=== PATIENT | female | born 2000 | race Caucasian/White ===

== ENCOUNTER 2024-01-23 16:25 | Outpatient (CLI) | payer MEDICAID, SELFPAY ==
[2024-01-23 16:42] VITALS: BP 133/82; PULSE 94; PULSE 95; TEMP 36.6; O2SAT 96
[2024-01-23 17:02] LABS: Appearance Urine Clear (Clear); Bilirubin Urine Negative (Negative); Blood Urine Negative (Negative); Color Urine Yellow (Yellow); Glucose Urine Negative (Negative); Ketones Urine Negative (Negative); Leukocyte Esterase Urine 1+ (Negative); Nitrite Urine Negative (Negative); Protein Urine Negative (Negative); Urobilinogen Urine 0.2 (0.2-1.0)
[2024-01-23 17:09] LABS: Bacteria Urine Few; RBC Urine 0-2 (0-2); Squamous Epithelial Cell Urine Few (None-Few)
[2024-01-23 17:26] VITALS: PULSE 87; O2SAT 98
[2024-01-23 17:36] LABS: Clue Cells <20% Clue Cells Seen (None Seen); Trichomonas No Trichomonas Seen (None Seen); Yeast No Yeast Seen (None Seen)
--- NOTE | 2024-01-23 18:10 | PC.OBNST ---
NST Note NST Note Start: 01/23/24 16:31 Freq: ONCE Status: Active Protocol: Document 01/23/24 18:09 RAEANN (Rec: 01/23/24 18:10 RAEANN Desktop) NST Note 1 Para (# of births) 0 EDC 03/18/24 Gestational Age In Weeks & Days 32 Weeks & 1 Days Other Complaints Foamy discharge, pelvic pressure Reactive Yes Appropriate for Gestational Age Yes RN Dontae Nolen RN Date 01/23/24 Reactive Yes Appropriate for Gestational Age Yes JACOB Shah Date 01/23/24 OB NST charge Yes Complete NST Note via Write Note Yes The provider's electronic signature indicates the NST is reactive/appropriate for gestational age. *Note to provider: If an addendum is required, open the patient's chart and click on the note under the Nurse/Allied Health tab.
[2024-01-23 18:27] VITALS: BP 121/74; PULSE 86
== END 2024-01-23 18:30 | disposition home or self-care (01) ==
LOC: OB OUT 16:25 → OB 16:25
PROVIDERS: PCP Family Medicine; Visit Provider Family Medicine
DX: O47.03 False labor before 37 completed weeks of gestation, third trimester (principal); Z3A.32 32 weeks gestation of pregnancy
CPT/HCPCS: 59025; 81001; 81003; 87086; 87210; G0463

== ENCOUNTER 2024-02-23 12:07 | Outpatient (CLI) | payer MEDICAID, SELFPAY ==
[2024-02-23] VITALS (19 sets, daily range): BP systolic 118–135; BP diastolic 68–82; PULSE 81–114; RESP 18; TEMP 37.2; O2SAT 97
[2024-02-23] MEDS: ACETAMINOPHEN 500 MG TABLET 1000 MG PO (12:30)
[2024-02-23] MEDS: LACTATED RINGERS 1000 ML 1,000 ML IV (12:31)
[2024-02-23 12:47] LABS: Hematocrit 34.4 % (33.0-51.0); Mean Corpuscular HGB Conc 32 gm/dL (32-36); Mean Corpuscular Hemoglobin 29 pg (26-34); Mean Corpuscular Volume 91 fL (80-100); Platelet Count* 209 K/uL (140-440); Red Blood Count 3.79 m/uL (4.00-5.20); White Blood Count* 13.42 K/uL (4.50-11.00)
[2024-02-23 12:51] LABS: Slide Review Reflex No
[2024-02-23 13:01] LABS: Appearance Urine Clear (Clear); Bilirubin Urine Negative (Negative); Blood Urine Negative (Negative); Color Urine Yellow (Yellow); Glucose Urine Negative (Negative); Ketones Urine Negative (Negative); Leukocyte Esterase Urine Trace (Negative); Nitrite Urine Negative (Negative); Protein Urine Negative (Negative); Specific Gravity Urine >= 1.030 (1.000-1.030); Urobilinogen Urine 0.2 (0.2-1.0)
[2024-02-23 13:09] LABS: Alanine Aminotransferase* 12 U/L (4-35); Aspartate Amino Transferase* 31 U/L (12-35); Blood Urea Nitrogen* 7 mg/dL (5-24); Creatinine* 0.5 mg/dL (0.5-1.5); Estimated Glomerular Filt Rate 136 ml/min
[2024-02-23 13:09] LABS: RBC Urine 0-2 (0-2); Squamous Epithelial Cell Urine Few (None-Few); Total Protein Urine 11 mg/dL; WBC Urine 0-2 (0-5)
[2024-02-23 13:10] LABS: Bacteria Urine Few; Creatinine Urine 138.5 mg/dL; Protein Creatinine Ratio Urine 0.08 (0-0.19)
--- NOTE | 2024-02-23 16:46 | PC.OBNST ---
NST Note NST Note Start: 02/23/24 12:20 Freq: ONCE Status: Active Protocol: Document 02/23/24 16:43 MMB (Rec: 02/23/24 16:45 MMB [id number]) NST Note 1 Para (# of births) 0 EDC 03/18/24 Gestational Age In Weeks & Days 36 Weeks & 4 Days Patient Presented with Complaint(s) of Headache,Other Other Complaints High Blood pressure reading in clinic. R/o Pre-E. Reactive Yes Appropriate for Gestational Age Yes JACOB Gudino RN Date 02/23/24 Reactive Yes Appropriate for Gestational Age Yes JACOB Shah RN Date 02/23/24 OB NST charge Yes Complete NST Note via Write Note Yes The provider's electronic signature indicates the NST is reactive/appropriate for gestational age. *Note to provider: If an addendum is required, open the patient's chart and click on the note under the Nurse/Allied Health tab.
== END 2024-02-23 15:20 | disposition home or self-care (01) ==
LOC: OB OUT 12:07 → OB 12:08
PROVIDERS: PCP Family Medicine; Visit Provider Family Medicine
DX: O26.893 Other specified pregnancy related conditions, third trimester (principal); R51.9 Headache, unspecified; Z3A.36 36 weeks gestation of pregnancy
CPT/HCPCS: 36415; 59025; 81001; 81003; 82565; 82570; 84156; 84450; 84460; 84520; 85027; 87086; G0463; A9270; J7120

== ENCOUNTER 2024-02-27 14:00 | Outpatient (CLI) | payer MEDICAID, SELFPAY ==
[2024-02-27] VITALS (18 sets, daily range): BP systolic 113–139; BP diastolic 64–88; PULSE 80–119; O2SAT 97–99
[2024-02-27] MEDS: ACETAMINOPHEN 500 MG TABLET 1000 MG PO (15:21)
[2024-02-27 15:47] LABS: Alanine Aminotransferase* 16 U/L (4-35); Aspartate Amino Transferase* 27 U/L (12-35); Blood Urea Nitrogen* 8 mg/dL (5-24); Creatinine* 0.5 mg/dL (0.5-1.5); Estimated Glomerular Filt Rate 136 ml/min
[2024-02-27 16:11] LABS: Total Protein Urine 6 mg/dL
[2024-02-27 16:14] LABS: Hematocrit 36.1 % (33.0-51.0); Hemoglobin* 11.4 gm/dL (12.0-16.0); Mean Corpuscular HGB Conc 32 gm/dL (32-36); Mean Corpuscular Hemoglobin 29 pg (26-34); Mean Corpuscular Volume 91 fL (80-100); Platelet Count* 212 K/uL (140-440); Red Blood Count 3.96 m/uL (4.00-5.20); White Blood Count* 11.84 K/uL (4.50-11.00)
[2024-02-27 16:17] LABS: Slide Review Reflex No
--- NOTE | 2024-02-27 17:50 | PC.OBNST ---
NST Note NST Note Start: 02/27/24 14:14 Freq: ONCE Status: Active Protocol: Document 02/27/24 17:48 FJZ (Rec: 02/27/24 17:50 FJZ [id number]) NST Note 1 Para (# of births) 0 EDC 03/18/24 Gestational Age In Weeks & Days 37 Weeks & 1 Days Patient Presented with Complaint(s) of Other Other Complaints Elevated BP at home. Came in for BP monitoring. Reactive Yes Appropriate for Gestational Age Yes RN Antonia Case RN Date 02/27/24 Reactive Yes Appropriate for Gestational Age Yes RN Antonia Case RN Date 02/27/24 OB NST charge Yes Complete NST Note via Write Note Yes The provider's electronic signature indicates the NST is reactive/appropriate for gestational age. *Note to provider: If an addendum is required, open the patient's chart and click on the note under the Nurse/Allied Health tab.
--- NOTE | 2024-03-08 14:38 | PC.OBNST ---
NST Note NST Note Start: 02/27/24 14:14 Freq: ONCE Status: Discharge Protocol: Document 02/27/24 17:48 FJZ (Rec: 02/27/24 17:50 MORGANZ [id number]) NST Note 1 Para (# of births) 0 EDC 03/18/24 Gestational Age In Weeks & Days 37 Weeks & 1 Days Patient Presented with Complaint(s) of Other Other Complaints Elevated BP at home. Came in for BP monitoring. Reactive Yes Appropriate for Gestational Age Yes RN Antonia Case RN Date 02/27/24 Reactive Yes Appropriate for Gestational Age Yes RN Antnoia Case RN Date 02/27/24 OB NST charge Yes Complete NST Note via Write Note Yes The provider's electronic signature indicates the NST is reactive/appropriate for gestational age. *Note to provider: If an addendum is required, open the patient's chart and click on the note under the Nurse/Allied Health tab.
== END 2024-02-27 17:10 | disposition home or self-care (01) ==
LOC: OB OUT 14:01 → OB 14:01
PROVIDERS: PCP Family Medicine; Visit Provider Family Medicine
DX: O26.893 Other specified pregnancy related conditions, third trimester (principal); R03.0 Elevated blood-pressure reading, without diagnosis of hypertension; Z3A.37 37 weeks gestation of pregnancy
CPT/HCPCS: 36415; 59025; 82565; 82570; 84156; 84450; 84460; 84520; 85027; G0463; A9270

== ENCOUNTER 2024-02-29 15:55 | Inpatient (IN) | payer MEDICAID, SELFPAY ==
[2024-02-29] VITALS (9 sets, daily range): BP systolic 125–128; BP diastolic 69–76; PULSE 78–118; RESP 16; TEMP 36.7–37.2; O2SAT 100; BMI 32.6
[2024-02-29 17:23] LABS: Basophils Percent Auto 0.1 % (0.0-3.0); Eosinophils Percent Auto 0.4 % (0.0-7.0); Hematocrit 34.5 % (33.0-51.0); Immature Granulocytes Pct Auto 0.4 %; Lymphocytes Percent Auto 14.1 % (20-44); Mean Corpuscular HGB Conc 32 gm/dL (32-36); Mean Corpuscular Hemoglobin 29 pg (26-34); Mean Corpuscular Volume 90 fL (80-100); Monocytes Percent Auto 7.5 % (0.0-11.0); Neutrophils Percent Auto 77.5 % (42.0-72.0); Platelet Count* 209 K/uL (140-440); RDW Coefficient of Variation % 12.8 % (11.5-15.5); Red Blood Count 3.82 m/uL (4.00-5.20); White Blood Count* 14.06 K/uL (4.50-11.00)
[2024-02-29 17:25] LABS: Slide Review Reflex No
[2024-02-29] MEDS: miSOPROStoL 25 MCG/0.25 TABLET PO ×4 (17:34→23:44)
[2024-02-29 18:03] LABS: Alanine Aminotransferase* 16 U/L (4-35); Aspartate Amino Transferase* 29 U/L (12-35); Creatinine* 0.5 mg/dL (0.5-1.5); Est. Creatinine Clearance* 139.58; Estimated Glomerular Filt Rate 136 ml/min
[2024-02-29 18:04] LABS: Blood Urea Nitrogen* 12 mg/dL (5-24)
[2024-02-29 20:28] LABS: Total Protein Urine 6 mg/dL
[2024-02-29 20:29] LABS: Protein Creatinine Ratio Urine 0.04 (0-0.19)
[2024-03-01] VITALS (49 sets, daily range): BP systolic 109–139; BP diastolic 57–83; PULSE 80–109; RESP 16; TEMP 36.6–38; O2SAT 100
[2024-03-01] MEDS: MORPHINE 10 MG/ML inj IM (00:29)
[2024-03-01] MEDS: hydrOXYzine pamoate 25 MG CAPSULE 100 MG PO (00:30)
[2024-03-01] MEDS: miSOPROStoL 25 MCG/0.25 TABLET PO ×2 (01:54→04:01)
--- NOTE | 2024-03-01 07:16 | PM.OBHPLI ---
OB - H&P: HPI Labor/Induction History of Present Illness Date Seen: 03/01/24 Chief complaint: Maternity Narrative: Aminata Lew is a 23 year old at 37.4 weeks gestation by 1st trimester US, who presented for IOL secondary to gestational hypertension diagnosed at clinic visit on 02/28. IOL began on 02/28 with cervical ripening overnight with PO cytotec. Patient tolerated this well. Did have some cramping and contractions. Has had some blood noted after cervical checks. Feeling normal FM. has been otherwise uncomplicated. Was on citalopram for first 4 months of , then elected to discontinue. Echogenic intracardiac focus identified on anatomy US - underwent level II US with MPP and had low risk NIPT. History of Present Dating criteria: based on 1st trimester US only care: good care complications: gestational hypertension Labs Blood type: A (+) positive Rubella: immune RPR/VDLR: nonreactive GBS status: negative HBsAG: negative Meds Home Medications and Allergies Home Medications ?Medication ?Instructions ?Recorded ?Confirmed ?Type vitamins no.144-folic 2 tab PO DAILY 01/23/24 02/29/24 History acid 400 mcg chewable tablet () Allergies Allergy/AdvReac Type Severity Reaction Status Date / Time Prednisone Allergy Mild Rash Uncoded 01/23/24 18:15 OB - H&P: Exam Physical Exam: Vital signs: Temp Pulse Resp BP Pulse Ox 98.9 F 83 16 136/83 100 03/01/24 07:10 03/01/24 07:10 03/01/24 07:10 03/01/24 07:10 02/29/24 16:21 Constitutional: Constitutional: no acute distress Routine Respiratory Exam: Respiratory: Present CTA bilaterally Routine Cardiovascular Exam: Cardiovascular: RRR Comments: no murmur Detailed Labor and Delivery Exam: Patient Gravid: Yes Cervix position: anterior Consistency: soft Fetus (Single): Heart Rate Baseline: 125 Monitor Accelerations: Present Chcf Variability: Moderate (6-25) OB - Results Labs Labs: Short CBC 02/29/24 Range/Units 17:12 WBC 14.06 H (4.50-11.00) K/uL Hgb 11.0 L (12.0-16.0) gm/dL Hct 34.5 (33.0-51.0) % Plt Count 209 (140-440) K/uL BMP 02/29/24 17:12 BUN 12 Creatinine 0.5 Liver Function 02/29/24 Range/Units 17:12 AST 29 (12-35) U/L ALT 16 (4-35) U/L OB - Problem Based A/P Additional Plan (1) Gestational hypertension: Status: Acute (2) 37 weeks gestation of : Status: Acute Plan at 37.4 here for IOL 2/2 GHTN. Preeclampsia labs normal. BP have been normal since arrival to center on 02/28. S/p PO cytotec overnight. Cervical dilation is fingertip. Able to place cook catheter at 0700 with 50cc per balloon. Plan to start low dose pitocin at 0800. Anticipate .
[2024-03-01] MEDS: ONDANSETRON 2 MG/ML inj 4 MG IV (07:59)
[2024-03-01] MEDS: LACTATED RINGERS 1000 ML 1,000 ML 125 ML IV ×3 (08:34→18:54)
[2024-03-01] MEDS: OXYTOCIN 30 unit/500 ML in NS 30 UNIT/500 ML BAG IVPB (08:35)
[2024-03-01] MEDS: ROPIVACAINE 0.2% 100 ml 100 ML 12 MG EPIDURAL ×2 (16:58→22:45)
[2024-03-01] MEDS: LIDOCAINE 2% (PF) 5 ML VIAL EPIDURAL (16:59)
[2024-03-01] MEDS: fentaNYL 250 MCG/5 ML inj 100 MCG EPIDURAL (17:05)
--- NOTE | 2024-03-01 17:14 | PM.ANBPRC ---
[facility] Medical History (Updated 03/01/24 @ 08:06 by Dana De Los Santos, ) 37 weeks gestation of ?Z3A.37 - 37 weeks gestation of (ICD-10) Gestational hypertension ?O13.9 - Gestational [-induced] hypertension without significant proteinuria, unspecified trimester (ICD-10) Social History What is your current living situation?: I presently have a place to live Problems where you live: no known problems In the past 12 months, utilities in danger of being shut off: no In past 12 months, lack of transportation kept you from medical appts, meetings, work, or getting things needed for daily living: no In the past 12 mos, have been you worried that your food would run out before you had money to buy more?: never true In the past 12 mos, the food you bought just didn't last and you didn't have money to buy more?: never true Smoking Status: Never smoker How often does anyone, including family, friends and others, physically hurt you: never How often does anyone, including family, friends and others, insult or talk down to you: never How often does anyone, including family, friends and others, threaten you with harm: never How often does anyone, including family, friends and others, scream or curse at you: never Meds Home Medications and Allergies Home Medications ?Medication ?Instructions ?Recorded ?Confirmed ?Type vitamins no.144-folic 2 tab PO DAILY 01/23/24 02/29/24 History acid 400 mcg chewable tablet () Allergies Allergy/AdvReac Type Severity Reaction Status Date / Time Prednisone Allergy Mild Rash Uncoded 01/23/24 18:15 Results Labs Labs: Laboratory Results - last 24 hr 02/29/24 02/29/24 17:02 17:12 WBC 14.06 H RBC 3.82 L Hgb 11.0 L Hct 34.5 MCV 90 MCH 29 MCHC 32 RDW Coeff of Terese 12.8 Plt Count 209 Neut % (Auto) 77.5 H Lymph % (Auto) 14.1 L Marin % (Auto) 7.5 Eos % (Auto) 0.4 Baso % (Auto) 0.1 Neut # (Auto) 10.90 H Lymph # (Auto) 2.00 Marin # (Auto) 1.10 H Eos # (Auto) 0.10 Baso # (Auto) 0.00 Abs Immat Gran (auto) 0.10 Imm/Tot Granulo (auto) 0.4 BUN 12 Creatinine 0.5 Estimated Creat Clear 139.58 Estimated GFR 136 AST 29 ALT 16 Urine Creatinine 138.0 Protein/Creatinin Ratio 0.04 Urine Total Protein 6 Blood Type A Positive Antibody Screen NEGATIVE Vital Signs Vital Signs: Last Vital Signs Temp 99.2 F 03/01/24 16:10 Pulse 93 03/01/24 17:07 Resp 16 03/01/24 07:10 BP 125/68 03/01/24 17:07 Pulse Ox 100 03/01/24 17:08 Weight: 81.012 kg Height: 157.48 cm Anesthesia Procedures Epidural Insertion Patient Location: OB Start Time: 16: Stop Time: 17:30 Start Date: 03/01/24 Stop Date: 03/01/24 Reason for Block: primary anesthetic Patient Position: sitting Performed By: Grant Retana Preanesthetic Checklist: IV checked, risks and benefits discussed, surgical consent, monitors and equipment checked, pre-op evaluation, timeout performed and anesthesia consent Prep: chlorhexidine gluconate Monitoring: blood pressure monitoring, rn cardiac rehab, continuous pulse oximetry and heart rate Approach: midline Vertebral Space: lumbar (1-5) Needle Type: Tuohy needle Injection Technique: continuous catheter Needle gauge: 17 Needle Length (cm): 10 cm Needle Insertion Depth (cm): 6 Catheter Gauge: 19 Catheter Type: multi-orifice Catheter at skin depth (cm): 12 Test Dose Result: negative and lidocaine 1.5% with epinephrine 1 to 200,000 Events: other
[2024-03-01 18:11] LABS: Amnisure Rom* POSITIVE
[2024-03-02] VITALS (15 sets, daily range): BP systolic 107–165; BP diastolic 56–72; PULSE 81–97; RESP 16–19; TEMP 36.8–37.3; O2SAT 95–98
--- NOTE | 2024-03-02 00:35 | W.PM.VAGDEL1 ---
Procedure Procedure Done: Global Procedure Details: Aminata Lew is a 23 yo who underwent IOL 2/2 gestational hypertension at 37.3 weeks gestation. Underwent cervical ripening with cytotec prior to placement of cook catheter and initiation of pitocin. She had a normal first stage of labor. Early in the second stage, she had one temperature of 100.4 F without other s/sx of intraamniotic infection. She pushed for approximately 2 hours and 20 minutes. She delivered a male infant at 37w4d gestation via . There was a body cord x1 that was delivered through. EBL 150 cc. There was a 3rd degree perineal laceration which was repaired by Ob-Patient Resource Coordinator, Dr. Nicolas. Events: Gestational Hypertension Intrapartal Events: Labor Induction Route of delivery: Laceration description: Perineal - 3rd Degree Estimated blood loss (mL): 150 Roy Infant Gender: Male presentation: vertex Placental Delivery Description: Spontaneous Cord Description: 3 Vessels and Around Body x1
--- NOTE | 2024-03-02 01:14 | PM.PROC ---
Procedure Note Time Seen by Provider: 01:14 Date Seen: 03/02/24 Date of procedure: 03/02/24 Will [facility] bill your pro fee for this procedure?: Yes Pre-op diagnosis: 3rd degree perineal laceration. 3B. Procedure: I was called by Dr. Dana De Los Santos to repair a 3rd degree perineal laceration. The laceration was through the external sphincter but not through the rectal mucosa. The external anal sphincter and fascia was grasped with 2 Allis clamps 1 on each side of the laceration. Three [id number] sutures using 3-0 Vicryl were placed 1 anterior, 1 posterior and 1 directly beneath the Allis clamps. The remaining second-degree laceration was then reapproximated in the usual manner. The laceration was instilled with 1% lidocaine, 20 mL prior to forming the repair as the patient's epidural was not adequately covering the patient's discomfort. Patient tolerated this procedure well. Sponge, lap and instrument counts were correct x2 at the end of the procedure.
[2024-03-02] MEDS: ACETAMINOPHEN 500 MG TABLET 1000 MG PO ×4 (01:47→20:45)
[2024-03-02] MEDS: IBUPROFEN 600 MG TABLET PO ×3 (01:47→14:23)
[2024-03-02 07:05] LABS: Hemoglobin* 9.8 gm/dL (12.0-16.0)
[2024-03-02] MEDS: DOCUSATE SODIUM 100 MG CAPSULE PO (07:50)
--- NOTE | 2024-03-02 12:09 | PM.ANPOST ---
Post Anesthesia Note Post Anesthesia Note Patient seen: Inpatient Respiratory Status: adequate Cardiovascular Status: adequate Mental Status: baseline Pain: adequate Temp: baseline Anesthetic awareness: N/A Complications: none Follow care: none
[2024-03-02 21:46] LABS: Rapid Plasma Reagin (RPR) Non Reactive (Non Reactive)
[2024-03-03 04:06] VITALS: BP 110/72; PULSE 86; RESP 16; TEMP 36.9; O2SAT 97
[2024-03-03] MEDS: IBUPROFEN 600 MG TABLET PO (07:51)
[2024-03-03] MEDS: ACETAMINOPHEN 500 MG TABLET 1000 MG PO (07:52)
[2024-03-03] MEDS: DOCUSATE SODIUM 100 MG CAPSULE PO (07:53)
[2024-03-03 08:07] VITALS: BP 113/77; PULSE 90; RESP 16; TEMP 36.8; O2SAT 97
--- NOTE | 2024-03-03 08:40 | PM.OBDSVD1 ---
DS: Providers Provider Date Seen: 03/03/24 Date of admission: 02/29/24 15:55 Primary care physician: Dana De Los Santos DO Admitting Clinician: Dana De Los Santos DO Attending Physician on discharge: Dana De Los Santos DO DS: Diagnosis Discharge Diagnosis (1) Third degree perineal laceration during delivery with more than 50% tear of external anal sphincter: Status: Acute (2) (normal spontaneous vaginal delivery): Status: Acute (3) Gestational hypertension: Status: Acute Exam Const: Vital Signs, click to edit/add: Vital Signs - 24 hr 03/02/24 14:27 03/02/24 20:30 03/03/24 04:06 Temperature 98.2 F 98.7 F 98.4 F Pulse Rate [Pulse Oximeter] 81 83 86 Respiratory Rate 19 16 16 Blood Pressure [Le ft Arm] 112/68 111/71 110/72 Pulse Oximetry 97 98 97 Oxygen Delivery Me thod Room Air Room Air Room Air 03/03/24 08:07 Temperature 98.2 F Pulse Rate [Pulse Oximeter] 90 Respiratory Rate 16 Blood Pressure [Le ft Arm] 113/77 Pulse Oximetry 97 Oxygen Delivery Me thod Room Air Documenting provider has reviewed patient's vital signs: yes Common normals: no apparent distress Resp: Common normals: normal respiratory effort, no retractions and clear to auscultation bilaterally Auscultation: clear to auscultation bilaterally Cardio: Common normals: regular rate, regular rhythm and no murmurs Rate: regular rate Rhythm: regular rhythm GI: Common normals: soft to palpation Palpation: soft; non-tender : Uterus: 2/U and firm Extremity: Common normals: no calf tenderness and no pedal edema Psych: Common normals: mental status grossly normal OB - DS: Summary Hospital Course Hospital Course: The patient is a 23 year old G 1 P 1 at 37.3 weeks gestation that was admitted to the Center on 02/29/24 for induction of labor secondary to gestational hypertension. She had an uncomplicated vaginal delivery. She delivered a viable male . She is breast feeding. the patient has done well. Peripartum Data Infant delivery method: Vaginal Laceration description: Perineal - 3rd Degree complications: none [place] Gender: Male Discharge Plan: Home Status at Discharge Functional status at discharge: independent ambulation Overall status at discharge: patient is back to baseline Time Spent with Patient Time attestation: Total time spent providing and/or coordinating discharge services: Time spent: Less than 30 minutes Discharge Plan Discharge Disposition: Home, Self-Care Date of Admission: 02/29/24 15:55 Primary Care Provider: Dana De Los Santos Condition: Stable Anticipated Discharge Date/Time: 03/03/24 15:00 Discharge Medications: Continued 400 mcg tablet,chewable 2 tab PO DAILY Discharge Orders: Discharge Order (Routine); Ordered 03/03/24 Ordered By: Rolando Chavez Patient Education: Perineal Tear with Delivery (GEN), Vaginal Delivery (GEN), Hypertension During (DC) Activity Level: Activity as Tolerated Discharge Diet: Regular Follow Up Appointments: Dana De Los Santos DO [Primary Care Provider] - Forms: MyHealth Info Instructions
[2024-03-03 12:22] VITALS: BP 117/76; PULSE 87; RESP 16; TEMP 36.5; O2SAT 98
== END 2024-03-03 15:38 | disposition home or self-care (01) | DRG 768 ==
PROVIDERS: Admitting Provider Family Medicine; PCP Family Medicine; Visit Provider Family Medicine
DX: O13.4 Gestational [pregnancy-induced] hypertension without significant proteinuria, complicating childbirth (principal); Z37.0 Single live birth; O70.22 Third degree perineal laceration during delivery, IIIb; Z3A.37 37 weeks gestation of pregnancy
CPT/HCPCS: 01967; 36415; 59200; 82565; 82570; 84112; 84156; 84450; 84460; 84520; 85018; 85025; 85027; 86592; 86850; 86900; 86901; 88307; A9270; C1726; J2270; J2371; J2405; J2795; J3010; J7120

== ENCOUNTER 2024-03-05 17:29 | Outpatient (CLI) | payer MEDICAID, SELFPAY ==
[2024-03-05 18:12] LABS: Bilirubin Urine Negative (Negative); Blood Urine 3+ (Negative); Color Urine Yellow (Yellow); Glucose Urine Negative (Negative); Ketones Urine 2+ (Negative); Leukocyte Esterase Urine 1+ (Negative); Nitrite Urine Positive (Negative); Protein Urine 1+ (Negative); Specific Gravity Urine 1.025 (1.000-1.030); Urobilinogen Urine 0.2 (0.2-1.0); pH Urine 5.5 (5.0-8.5)
[2024-03-05 18:13] LABS: Appearance Urine Slightly Cloudy (Clear)
[2024-03-05 18:25] LABS: Bacteria Urine Many; RBC Urine 25-50 (0-2); Squamous Epithelial Cell Urine Few (None-Few); WBC Urine 25-50 (0-5)
== END 2024-03-05 17:30 | disposition home or self-care (01) ==
LOC: OB OUT 17:31
PROVIDERS: PCP Family Medicine; Visit Provider Surgery
DX: O13.3 Gestational [pregnancy-induced] hypertension without significant proteinuria, third trimester (principal); Z3A.37 37 weeks gestation of pregnancy
CPT/HCPCS: 81001; 81003; 87086; 87186

== ENCOUNTER 2024-03-25 09:52 | Outpatient (CLI) | payer MEDICAID, SELFPAY | END 2024-03-25 09:53 | disposition home or self-care (01) | LOC: NFLDREF 03-29 09:28 | PROVIDERS: PCP Family Medicine; Referring Provider Family Medicine; Visit Provider Physician Assistant | DX: N30.01 Acute cystitis with hematuria (principal); B96.20 Unspecified Escherichia coli [E. coli] as the cause of diseases classified elsewhere | CPT/HCPCS: 87086; 87186 ==